=== PATIENT | male | born 1990 | race Two or more races ===

== ENCOUNTER 2025-10-27 06:48 | Emergency (ER) | payer SELFPAY ==
[~2025-10-27] VITALS: Ht 170.2 cm; Wt 90.0 kg
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
[2025-10-27] MEDS: HYDROcodone-ACET 5/325MG TAB PO ONE (07:42)
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
[2025-10-27] MEDS ORDERED: METH-1181 PO (08:34)
[2025-10-27] MEDS ORDERED: IBUP1TAB5 PO (08:34)
[2025-10-27 09:01] VITALS: BP 124/84; PULSE 74; RESP 17; TEMP 98.3; O2SAT 98
== END 2025-10-27 09:03 | disposition home or self-care (01) ==
LOC: EDBD 06:48 → ER 06:48
DX: M54.50 Low back pain, unspecified (principal); V89.2XXA Person injured in unspecified motor-vehicle accident, traffic, initial encounter; Y93.89 Activity, other specified; Y92.488 Other paved roadways as the place of occurrence of the external cause; Y99.8 Other external cause status
CPT/HCPCS: 72040